=== PATIENT | male | born 1985 | race Caucasian/White ===

== ENCOUNTER 2021-03-15 11:13 | Emergency (ER) | payer OTHER ==
[2021-03-15 12:21] LABS: RED BLOOD COUNT 5.16 M/UL (4.20-5.50); WHITE BLOOD COUNT 4.5 K/UL (4.5-11.0)
[2021-03-15 12:43] LABS: BUN/CREATININE RATIO 11 (0-10)
[2021-03-15] MEDS ORDERED: ZOFRAN4 MG PO (14:25)
== END 2021-03-15 16:16 | disposition home or self-care (01) ==
LOC: ER1 11:13
PROVIDERS: Physician Assistant Medical
DX: U07.1 COVID-19 (principal); Z23 Encounter for immunization; Z88.8 Allergy status to other drugs, medicaments and biological substances
CPT/HCPCS: 71045; 80053; 83690; 85025; 96374; 99284; J2405; M0243